=== PATIENT | female | born 1955 | race Caucasian/White ===

== ENCOUNTER 2020-02-25 13:10 | Inpatient (IN) ==
[2020-02-25] MEDS ORDERED: Naloxone 0.4 MG/ML INJ IVP PRN (15:49)
[2020-02-25] MEDS ORDERED: *HR* OxyCODONE Immed Rel 5 MG TABLET PO PRN (15:49)
[2020-02-25] MEDS ORDERED: MOM Conc 10 ML UD.LIQ PO PRN (15:49)
[2020-02-25] MEDS ORDERED: *HR* Promethazine 25 MG/ML VIAL IVP PRN (15:49)
[2020-02-25] MEDS ORDERED: Ondansetron 4 MG/2 ML VIAL IVP PRN (15:49)
[2020-02-25] MEDS ORDERED: Acetaminophen 325 MG TABLET PO PRN (15:49)
[2020-02-25] MEDS ORDERED: Mag Hydrox/Al Hydrox/Simeth 30 ML UDC PO PRN (15:49)
[2020-02-25] MEDS ORDERED: *HR* Dextrose 50 % in Water (Syg) 50 ML SYRINGE IVP PRN (15:50)
[2020-02-25] MEDS ORDERED: Dextrose Gel 15 GM/37.5 ML TUBE PO PRN ×2 (15:50)
[2020-02-25] MEDS ORDERED: D5% in Water 1,000 ML IVC PRN (15:50)
[2020-02-25] MEDS ORDERED: 0.9 % Sodium Chloride 500 ML IV ONE (16:17)
[2020-02-25 17:45] LABS: Amphetamine Screen,Urine Negative ng/mL (Cutoff=1000); Barbiturate Screen,Urine Negative ng/mL (Cutoff=200); Benzodiazepines Screen,Urine Negative ng/mL (Cutoff=200); Cannabinoid Screen,Urine Negative ng/mL (Cutoff = 50); Cocaine Screen,Urine Negative ng/mL (Cutoff= 300); Opiate Screen,Urine Positive ng/mL (Cutoff=300); Phencyclidine Screen,Urine Negative ng/mL (Cutoff=25)
[2020-02-25] MEDS: Insulin LISPRO 300 UNITS/3 ML VIAL SQ SCH ×2 (18:35→21:31)
[2020-02-25] MEDS: *HR* Heparin 5,000 UNIT/ML VIAL SQ SCH (18:43)
[2020-02-26 04:47] LABS: Basophils % 0.1 %; Hematocrit 41.2 % (35.3-44.9); Hemoglobin 13.5 g/dL (11.5-15.4); Immature Granulocytes % 0.4 % (0-4); Lymphocytes # 1.2 K/mcL (0.6-4.6); Lymphocytes % 17.2 %; Mean Corpuscular HGB Conc 32.8 g/dL (31.6-35.5); Mean Corpuscular Hemoglobin 29.5 pg (28.0-33.3); Mean Corpuscular Volume 90.2 fL (83.0-100.0); Mean Platelet Volume 10.6 fL (9.4-12.4); Monocytes # 0.7 K/mcL (0.0-1.3); Neutrophils # 5.2 K/mcL (1.6-8.9); Platelet Count 209 K/mcL (140-400); Red Blood Count 4.57 M/mcL (3.82-4.97); Red Cell Distribution Width 13.2 % (11.5-14.5); Segmented Neutrophils % 72.3 %; White Blood Count 7.2 K/mcL (4.3-11.1)
[2020-02-26] MEDS: *HR* Heparin 5,000 UNIT/ML VIAL SQ SCH ×2 (05:01→17:11)
[2020-02-26 05:08] LABS: Alanine Aminotransferase 21 Units/L (7-52); Albumin/Globulin Ratio 1.6 (1.1-2.2); Alkaline Phosphatase 67 Units/L (34-104); Aspartate Amino Transferase 29 Units/L (13-39); BUN/Creatinine Ratio 19 (6-26); Bilirubin,Total 1.3 mg/dL (0.3-1.0); Blood Urea Nitrogen 14 mg/dL (8-23); Calcium 10.3 mg/dL (8.6-10.3); Carbon Dioxide 22 mEq/L (23-29); Chloride 99 mEq/L (98-107); Globulin 2.5 g/dL (2.4-3.5); Glucose 133 mg/dL (70-105); Osmolality,Calculated 280 (280-300); Potassium 3.5 mEq/L (3.5-5.1); Sodium 134 mEq/L (136-145); Total Protein 6.5 g/dL (6.4-8.9); eGFR For African Americans > 60 (> 60); eGFR For Non-African Americans > 60 (> 60)
[2020-02-26] MEDS: Insulin LISPRO 300 UNITS/3 ML VIAL SQ SCH ×4 (07:39→19:57)
[2020-02-26] MEDS ORDERED: Aminoglycoside Consult 1 EACH MC ONE (08:14)
[2020-02-26] MEDS ORDERED: Aspirin Enteric Coated 81 MG Tablet PO SCH (12:15)
[2020-02-26] MEDS ORDERED: Isovue-370 500 ML BOTTLE IVP ONE (12:20)
[2020-02-26] MEDS ORDERED: 0.9 % Sodium Chloride 500 ML IVC ONE (19:54)
[2020-02-26] MEDS ORDERED: D10% in Water 500 ML IVC SCH (21:15)
[2020-02-26] MEDS ORDERED: 0.9 % Sodium Chloride 1,000 ML IV ONE (22:38)
[2020-02-26 23:39] LABS: Albumin 3.5 g/dL (3.5-5.7); Albumin/Globulin Ratio 1.8 (1.1-2.2); Bilirubin,Direct 1.4 mg/dL (0.0-0.2); Bilirubin,Indirect 0.9 mg/dL (0.0-1.0); Bilirubin,Total 2.3 mg/dL (0.3-1.0); Total Protein 5.5 g/dL (6.4-8.9)
[2020-02-27] MEDS: Lactulose 200 GM, Sodium Chloride IRRigation 700 ML RC SCH ×2 (00:23→03:13)
[2020-02-27 00:34] LABS: Calcium 8.6 mg/dL (8.6-10.3); Potassium 4.8 mEq/L (3.5-5.1)
[2020-02-27] MEDS ORDERED: Naloxone 0.4 MG/ML INJ IVP PRN (01:26)
[2020-02-27] MEDS ORDERED: D10% in Water 500 ML IVC SCH (01:26)
[2020-02-27] MEDS ORDERED: D5% in Water 1,000 ML IVC PRN (01:26)
[2020-02-27] MEDS ORDERED: Mag Hydrox/Al Hydrox/Simeth 30 ML UDC PO PRN (01:26)
[2020-02-27] MEDS ORDERED: *HR* Promethazine 25 MG/ML VIAL IVP PRN (01:26)
[2020-02-27] MEDS ORDERED: Dextrose Gel 15 GM/37.5 ML TUBE PO PRN ×2 (01:26)
[2020-02-27] MEDS ORDERED: *HR* Dextrose 50 % in Water (Syg) 50 ML SYRINGE IVP PRN (01:26)
[2020-02-27] MEDS ORDERED: Ondansetron 4 MG/2 ML VIAL IVP PRN (01:26)
[2020-02-27] MEDS ORDERED: MOM Conc 10 ML UD.LIQ PO PRN (01:26)
[2020-02-27 01:44] LABS: ABG Base Excess -15 mEq/L (-2 to 3); ABG HCO3 12 mEq/L (21-27); ABG Oxygen Saturation 97 % (95-98); ABG PCO2 30 mmHg (35-45); ABG PO2 109 mmHg (85-104); ABG TCO2 13 mEq/L (20-26)
[2020-02-27] MEDS ORDERED: 0.9 % Sodium Chloride 1,000 ML IV ONE (01:46)
[2020-02-27] MEDS ORDERED: Vancomycin (wt based) 1,000 MG VIAL IVPB SCH (02:00)
[2020-02-27] MEDS ORDERED: cefTRIAXone 2,000 MG in Water for inj. (sterile) 20 ML IVP SCH (02:00)
[2020-02-27] MEDS ORDERED: MetroNIDAZOLE 500 MG/100 ML 500 MG/100 ML BAG IVPB ONE (02:02)
[2020-02-27] MEDS ORDERED: Sodium Bicarbonate 50 MEQ/50 ML VIAL IVP ONE (02:05)
[2020-02-27 02:40] LABS: VBG Ionized Calcium 0.98 mmol/L (1.15-1.35)
[2020-02-27 02:44] LABS: Basophils % 0.1 %; Eosinophils % 0.1 %; Hematocrit 37.5 % (35.3-44.9); Hemoglobin 11.5 g/dL (11.5-15.4); Immature Granulocytes % 0.7 % (0-4); Lymphocytes # 0.7 K/mcL (0.6-4.6); Lymphocytes % 8.6 %; Mean Corpuscular HGB Conc 30.7 g/dL (31.6-35.5); Mean Corpuscular Hemoglobin 29.8 pg (28.0-33.3); Mean Corpuscular Volume 97.2 fL (83.0-100.0); Mean Platelet Volume 10.7 fL (9.4-12.4); Monocytes # 0.2 K/mcL (0.0-1.3); Monocytes % 2.4 %; Neutrophils # 7.6 K/mcL (1.6-8.9); Platelet Count 237 K/mcL (140-400); Red Blood Count 3.86 M/mcL (3.82-4.97); Red Cell Distribution Width 15.3 % (11.5-14.5); Segmented Neutrophils % 88.1 %; White Blood Count 8.6 K/mcL (4.3-11.1)
[2020-02-27 02:49] LABS: INR 4.2
[2020-02-27 02:52] LABS: Activated Partial Thrombo Time 32.6 Seconds (26.0-36.0)
[2020-02-27 02:55] LABS: Prothrombin Time 48.2 Seconds (9.4-12.1)
[2020-02-27] MEDS ORDERED: Lactulose 200 GM, Sodium Chloride IRRigation 700 ML RC SCH (03:00)
[2020-02-27 03:21] LABS: Alanine Aminotransferase 1715 Units/L (7-52); Albumin 3.2 g/dL (3.5-5.7); Albumin/Globulin Ratio 1.7 (1.1-2.2); Alkaline Phosphatase 69 Units/L (34-104); Aspartate Amino Transferase 1920 Units/L (13-39); BUN/Creatinine Ratio 16 (6-26); Bilirubin,Total 2.4 mg/dL (0.3-1.0); Blood Urea Nitrogen 35 mg/dL (8-23); C-Reactive Protein < 5 mg/L (Less than 10); Calcium 8.3 mg/dL (8.6-10.3); Carbon Dioxide 11 mEq/L (23-29); Chloride 99 mEq/L (98-107); Creatine Kinase 705 Units/L (30-223); Globulin 1.9 g/dL (2.4-3.5); Glucose 78 mg/dL (70-105); Magnesium 2.1 mg/dL (1.6-2.6); Osmolality,Calculated 287 (280-300); Phosphorous 6.1 mg/dL (2.7-4.5); Potassium 4.8 mEq/L (3.5-5.1); Sodium 135 mEq/L (136-145); Thyroid Stimulating Hormone 0.308 mcIU/mL (0.340-5.600); Total Protein 5.1 g/dL (6.4-8.9); eGFR For African Americans 28 (> 60); eGFR For Non-African Americans 23 (> 60)
[2020-02-27] MEDS ORDERED: 0.9 % Sodium Chloride 1,000 ML ONE (03:44)
[2020-02-27] MEDS ORDERED: 0.9 % Sodium Chloride 1,000 ML IVC SCH (04:00)
[2020-02-27] MEDS ORDERED: Calcium Gluconate 1gm/50mL 1 GM/50 ML BAG IVPB ONE (04:03)
[2020-02-27] MEDS ORDERED: ACETYLCYSTEINE IVC ONE ×2 (04:30→05:30)
[2020-02-27] MEDS ORDERED: WATER IVC ONE ×2 (04:30→05:30)
[2020-02-27] MEDS ORDERED: D5 IVC ONE ×2 (04:30→05:30)
[2020-02-27 04:37] LABS: Acetaminophen > 200 mcg/mL (10-20)
[2020-02-27 04:38] LABS: Bilirubin,Direct 1.4 mg/dL (0.0-0.2); Ethanol < 10 mg/dL (Less than 10)
[2020-02-27] MEDS ORDERED: FentaNYL (PF) 1,000 MCG in 0.9 % Sodium Chloride 80 ML IVC SCH (05:00)
[2020-02-27] MEDS ORDERED: Norepinephrine 4 MG in 0.9 % Sodium Chloride 250 ML IVC SCH (05:30)
[2020-02-27] MEDS ORDERED: *HR* Heparin 5,000 UNIT/ML VIAL SQ SCH (06:00)
[2020-02-27 06:15] VITALS: BP 89/38
[2020-02-27 06:47] LABS: Salicylate < 2.5 mg/dL (15.0-30.0)
[2020-02-27] MEDS ORDERED: Cefepime HCl 2,000 MG in Water for inj. (sterile) 20 ML IVP SCH (08:00)
[2020-02-27] MEDS ORDERED: *HR* Midazolam HCl 2 MG/2 ML VIAL IV ONE (08:14)
[2020-02-27] MEDS ORDERED: *HR* Etomidate 20 MG/10 ML AMPUL IVP ONE (08:14)
== END 2020-02-27 08:15 | DRG 917 ==
LOC: EMEROOARM 13:10 → 3ANU 13:10 → SUATTDRO 15:56 → 3ANU 16:22 → ICNU 02-27 01:25
PROVIDERS: ADMIT Internal Medicine; ATTEND Internal Medicine